=== PATIENT | female | born 1965 | race Caucasian/White ===

== ENCOUNTER 2020-05-09 22:30 | Emergency (ER) | payer SELFPAY ==
[~2020-05-09] VITALS: Ht 167.6 cm; Wt 77.1 kg
[2020-05-09 22:36] VITALS: BP 142/92
[2020-05-09] MEDS ORDERED: IBUPROFEN600 M1 ORAL (22:43)
[2020-05-09] MEDS ORDERED: RISPERDAL2 MG ORAL (22:43)
--- NOTE | 2020-05-09 22:43 | Emergency Room Report ---
History of Present Illness General Chief Complaint: Pain Source: Patient, EMS Present Illness HPI This is a 54-year-old female who is homeless. She has a history of bipolar. She recently got out of behavioral health unit. She is supposed be on Risperdal and Klonopin. She says that she lost her prescription. She presents with chief complaint of bilateral feet pain. No trauma. No fever chills. Pain is 8 out of 10. Worse with walking. Better with rest. Denies any other complaint. Allergies: Coded Allergies: No Known Allergies (Unverified , 05/09/20) COVID-19 Screening Contact w/high risk pt: No Experienced COVID-19 symptoms?: No COVID-19 Testing performed OFFICE MESSENGER HELPER: No Patient History Past Medical History: see triage record, old chart reviewed, psych hx Past Surgical History: none Pertinent Family History: none Social History: Denies: smoking Now: No Immunizations: other Reviewed Nursing Documentation: PMH: Agreed; PSxH: Agreed Nursing Documentation-PMH History Of Psychiatric Problem: Yes - schizo, bipolar Review of Systems Eye: Denies: eye pain, blurred vision ENT: Denies: ear pain, nose congestion, throat swelling Respiratory: Denies: cough, shortness of breath Cardiovascular: Denies: chest pain, palpitations Gastrointestinal: Denies: abdominal pain, diarrhea, nausea, vomiting Musculoskeletal: Reports: other; Denies: back pain, joint pain Skin: Denies: rash Neurological: Denies: headache, numbness Endocrine: Denies: increased thirst, increased urine Hematologic/Lymphatic: Denies: easy bruising All Other Systems: negative except mentioned in HPI Physical Exam Vital Signs Date Time Temp Pulse Resp B/P (MAP) Pulse Ox O2 Delivery O2 Flow Rate FiO2 05/09/20 22:34 98.4 80 16 142/92 (109) 98 Room Air Vitals unremarkable Sp02 EP Interpretation: reviewed, normal General Appearance: well appearing, no apparent distress, alert Head: normocephalic, atraumatic Eyes: bilateral eye PERRL, bilateral eye EOMI ENT: hearing grossly normal, normal pharynx Neck: full range of motion, supple, no meningismus Respiratory: chest non-tender, lungs clear, normal breath sounds Cardiovascular #1: regular rate, rhythm, no murmur Gastrointestinal: normal bowel sounds, non tender, no mass, no organomegaly, no bruit, non-distended Musculoskeletal: back normal, normal range of motion, gait/station normal, other - Both feet show no evidence of infection. She has small blister to the pad of her right great toe and second toe. Pulses normal. Psychiatric: mood/affect normal Medical Decision Making Homeless Attestation I, The treating physician, Dr Jas Varela, has assessed and agrees that patient is medically stable for discharge to an outpatient disposition. Diagnostic Impression: Primary Impression: Pain in both feet ER Course Patient with bilateral feet pain. No evidence of any trauma. Probably secondary to being on it all day long. We will let her sleep here and discharge in the morning. Last Vital Signs Date Time Temp Pulse Resp B/P (MAP) Pulse Ox O2 Delivery O2 Flow Rate FiO2 05/09/20 22:36 98.4 80 16 142/92 98 Room Air Status: improved Disposition: HOME, SELF-CARE Condition: Stable Scripts Risperidone* (RISPERDAL*) 2 Mg Tablet 2 MG ORAL DAILY, #30 TAB 0 Refills Prov: Jas Varela MD 05/09/20 Ibuprofen* (MOTRIN*) 600 Mg Tablet 600 MG ORAL Q6H PRN for For Pain, #30 TAB 0 Refills Prov: Jas Varela MD 05/09/20 Referrals: NOT CHOSEN IPA/,REFERRING (PCP) Additional Instructions: Follow-up with your doctor in 7 days. Return if symptoms worsen. Jas Varela MD May 09, 2020 22:43
[2020-05-10 01:05] VITALS: BP 136/88
[2020-05-10 06:10] VITALS: BP 130/82
== END 2020-05-10 06:10 | disposition home or self-care (01) ==
LOC: EDBD 22:30 → EMR 22:39
DX: M79.672 Pain in left foot (principal); M79.671 Pain in right foot; F31.9 Bipolar disorder, unspecified; Z59.0 Homelessness
CPT/HCPCS: 99283